=== PATIENT | male | born 1945 | race Caucasian/White ===

== ENCOUNTER 2023-08-10 09:04 | Day surgery (SDC) | payer MEDICARE, OTHER ==
[~2023-08-10 09:04] MED LIST: KETOROLAC 0.45% OPHTH DROPS ONE; PROPARACAINE 0.5% OPHTH DROPS 15 ML ONE
[2023-08-10] MEDS: LACTATED RINGERS 1,000 ML IV ONE (09:21)
[2023-08-10] MEDS ORDERED: BSS/LIDOCAINE/EPINEPHRINE 1 ML VIAL ONE (10:03)
[2023-08-10] MEDS ORDERED: EPINEPHrine 1 MG/ML AMP ONE (10:03)
[2023-08-10] MEDS ORDERED: TRIAMCIN/MOXIFLOX OPHTHALMIC 0.6 ML VIAL IO ONE (10:03)
[2023-08-10] MEDS ORDERED: BRIMONIDINE 0.2% OPHTH DROPS 5 ML ONE (10:03)
[2023-08-10] MEDS ORDERED: TIMOLOL 0.5% OPHTH DROPS ONE (10:03)
[2023-08-10] MEDS ORDERED: MIDAZOLAM 2 MG/2 ML VIAL ONE (10:04)
--- NOTE | 2023-08-10 10:04 | ANESTHESIA ---
Pre-Anesthesia VS, & Labs - Diagnosis left cataract - Procedure left cataract extraction with IOL Height: 6 ft 2 in Weight (kg): 112.8 kg Body Mass Index: 31.9 BMI Classification: Obese - NPO >8 hours Home Medications and Allergies Amlodipine Besylate [Norvasc] 2.5 mg PO DAILY 01/20/22 Lisinopril [Zestril] 20 mg PO DAILY 01/20/22 hydroCHLOROthiazide [Hydrodiuril] 25 mg PO DAILY 01/20/22 Allergies/Adverse Reactions: Allergies Allergy/AdvReac Type Severity Reaction Status Date / Time Penicillins Allergy Unknown Unknown Verified 08/10/23 09:12 Anes History & Medical History - Anesthetic History Anesthesia Complications: reports: No previous complications - Medical History Cardiovascular: reports: Hypertension Pulmonary: reports: None Gastrointestinal: reports: None Urinary: reports: None Musculoskeletal: reports: None Endocrine/Autoimmune: reports: None Skin: reports: None - Surgical History 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
[2023-08-10] MEDS ORDERED: fentaNYL 100 MCG/2 ML VIAL ONE (10:05)
[2023-08-10] MEDS: BSS/LIDOCAINE/EPINEPHRINE 1 ML SYRINGE IO ONE (10:42)
[2023-08-10] MEDS: TRIAMCIN/MOXIFLOX OPHTHALMIC 0.6 ML VIAL IO ONE (10:42)
[2023-08-10] MEDS: BRIMONIDINE 0.2% OPHTH DROPS 5 ML OPTH ONE (10:42)
[2023-08-10] MEDS: TIMOLOL 0.5% OPHTH DROPS OPTH ONE (10:42)
[2023-08-10] MEDS: EPINEPHrine 1 MG/ML AMP IR ONE (10:42)
[2023-08-10] MEDS: PROPARACAINE 0.5% OPHTH DROPS 15 ML EACHEYE ONE (10:42)
[2023-08-10] MEDS: VANCOMYCIN OPHTH (TOPICAL) 10 MG/ML SYRINGE TOP ONE (10:42)
[2023-08-10] MEDS: LACTATED RINGERS 400 ML IV ONE (10:49)
--- NOTE | 2023-08-10 10:58 | OPERATIVE REPORT ---
Operative Report - Other Other Information/Narrative: Date of Surgery: 08/10/23 Preop Dx: Visually significant cataract left eye. Cataract surgery was performed in the right eye on . Postop Dx: Same Procedure: Phacoemulsification with posterior chamber intraocular lens implant left eye Surgeon: Dr. Justyn Sosa Anesthesia: Monitored anesthesia care Complications: None Operative Indications: This is a 78-year-old M with progressive vision loss in the left eye due to 2+ nuclear sclerotic and 1-2+ cortical cataract. Best corrected visual acuity was 20/20 with glare to 20/70 vision in the left eye. Indications for surgery were: - Difficulty seeing words on a computer screen - Difficulty reading - Difficulty seeing words, closed captions, or game scores on TV - Difficulty seeing street signs - Difficulty driving in low light or at night The patient was consented at length concerning the risks and benefits of cataract surgery after which the patient expressed a desire to proceed with surgery. Operative Procedure: The patient was taken into OR#3 and placed under monitored anesthesia care. A surgical time-out was conducted confirming correct patient, correct procedure, and correct surgical site. The patient was given topical anesthesia and then prepped and draped in the usual sterile fashion. The eye was entered at the 6 and 3 oclock positions. Intracameral Shugarcaine was injected into the anterior chamber followed by a dispersive viscoelastic. A continuous-tear curvilinear capsulorhexis was performed. The nucleus was hydrodissected and phacoemulsified. The cortex was evacuated using automated infusion and aspiration. A cohesive viscoelastic was injected into the capsular bag and a 24.0 diopter intraocular lens was inserted into the bag. Infusion and aspiration were used to evacuate the viscoelastic materials from the eye. The wounds were hydrated and the eye inflated to physiologic pressure using balanced salt solution. Approximately 0.25ml of a mixture of triamcinolone and moxifloxacin was injected trans-sclerally into the vitreous in the inferotemporal quadrant using a 30 gauge cannula. An additional 0.25ml of a mixture of triamcinolone and moxifloxacin was injected subconjunctivally in the superior quadrant for infection and inflammation prophylaxis. Wound integrity was checked with Weck-Otilia sponges. The patient was taken from the operating room in good condition and given post-op instructions.
[2023-08-10 11:15] VITALS: BP 136/74; O2SAT 97
--- NOTE | 2023-08-10 11:17 | ANESTHESIA POST OP EVALUATION ---
Anesthesia Post Eval - Post Anesthesia Eval Vitals: Last Vital Signs Temp 36.5 C 08/10/23 11:08 Pulse 61 08/10/23 11:08 Resp 16 08/10/23 11:08 BP 136/74 H 08/10/23 11:08 Pulse Ox 97 08/10/23 11:08 O2 Flow Rate CV Function Including HR & BP: Stable Pain Control: Satisfactory Nausea & Vomiting: Negative Mental Status: Baseline Respiratory Status: Airway Patent Hydration Status: Satisfactory Anesthesia Complications: None
== END 2023-08-10 09:05 | disposition home or self-care (01) ==
LOC: SDS 09:04
PROVIDERS: ATTEND Ophthalmology
DX: H25.812 Combined forms of age-related cataract, left eye (principal); E66.9 Obesity, unspecified; Z68.31 Body mass index [BMI] 31.0-31.9, adult; Z98.41 Cataract extraction status, right eye
CPT/HCPCS: 66984; A9270; J3490; J7120

== ENCOUNTER 2023-09-05 14:30 | Outpatient (CLI) | payer MEDICARE, OTHER ==
--- NOTE | 2023-09-05 17:12 | XRAY Report ---
PROCEDURE: Foot 3 View LT INDICATIONS: LEFT FOOT TECHNIQUE: 3 views of the foot were acquired. COMPARISON: X-ray ankle 09/05/2023 FINDINGS: Bones: Prominent subluxation at the third PIP joint. No suspicious bony lesions. Soft tissues: No suspicious soft tissue calcifications or masses. IMPRESSION: The third PIP joint subluxation. No visualized acute fracture or dislocation. However, occult injury cannot be excluded. Recommend short interval imaging follow-up in 7-10 days as clinically indicated f or additional evaluation. Reviewed by: Joy Hinojosa MD on 09/05/2023 5:10 PM PDT Approved by: Joy Hinojosa MD on 09/05/2023 5:10 PM PDT Station ID: [id number]
--- NOTE | 2023-09-05 21:02 | XRAY Report ---
PROCEDURE: Ankle 3 View LT INDICATIONS: LEFT ANKLE PAIN TECHNIQUE: 3 views of the ankle were acquired. COMPARISON: None FINDINGS: Bones: No fractures or dislocations. Ankle mortise is normally aligned. No suspicious bony lesions . Soft tissues: Unremarkable without significant soft tissue swelling. No radiopaque foreign body. Athe rosclerotic vascular calcification IMPRESSION: Unremarkable ankle radiographs Reviewed by: Jhonny Smith MD on 09/05/2023 8:01 PM AKDT Approved by: Jhonny Smith MD on 09/05/2023 8:01 PM AKDT Station ID: [id number]
== END 2023-09-05 23:59 | disposition home or self-care (01) ==
LOC: DI.WOS 14:30
PROVIDERS: ATTEND Physician Assistant Surgical
DX: S93.135A Subluxation of interphalangeal joint of left lesser toe(s), initial encounter (principal)